=== PATIENT | male | born 1950 | race Caucasian/White ===

== ENCOUNTER → 2021-06-25 | Day surgery (SDC) | payer MEDICARE, OTHER ==
[~2021-06-25] VITALS: Ht 177.8 cm; Wt 85.3 kg
[~2021-06-25] MED LIST: ACYCLOVIR400 MG PO; ASCORBIC ACID500 MG PO; ASPIRIN EC81 MG PO; BYSTOLIC10 MG PO; CRESTOR10 MG PO; DOXAZOSIN MESYLA4 MG PO; KRILL OIL 5001 EAC1 PO; MELATONIN10 MG PO; MULTI-VITAMIN1 EACH PO; NIACIN ER500 MG PO; PROTONIX 40MG T40 MG PO; VITAMIN D32000 UNIT PO; ZINC CHELATED50 MG PO
== END | disposition home or self-care (01) ==
LOC: FAS 07:58
DX: Z12.11 Encounter for screening for malignant neoplasm of colon (principal); Z86.010 Personal history of colon polyps; K57.30 Diverticulosis of large intestine without perforation or abscess without bleeding; I10 Essential (primary) hypertension; E78.00 Pure hypercholesterolemia, unspecified; Z79.82 Long term (current) use of aspirin; Z87.891 Personal history of nicotine dependence; K21.9 Gastro-esophageal reflux disease without esophagitis
CPT/HCPCS: J2250; J2704; J7120